=== PATIENT | female | born 1950 | race Caucasian/White ===

== ENCOUNTER → 2024-01-09 | Outpatient (CLI) | payer MEDICARE, BC ==
[2024-01-09 15:54] LABS: Calcium 10.2 mg/dL (8.7-10.3); Magnesium 1.6 mg/dL (1.5-2.4); Phosphorus 3.4 mg/dL (2.4-5.1)
[2024-01-09 15:58] LABS: T4, Free (Free Thyroxine) <0.11 ng/dL (0.80-1.80)
== END | disposition home or self-care (01) ==
LOC: LABWHC1 09:01
PROVIDERS: ATTEND Internal Medicine
DX: C73 Malignant neoplasm of thyroid gland (principal)
CPT/HCPCS: 36415; 82310; 82570; 83735; 84100; 84432; 84439; 84443; 86800

== ENCOUNTER → 2024-01-15 | Outpatient (CLI) | payer MEDICARE, BC ==
--- NOTE | 2024-01-15 16:50 | NM ---
EXAMINATION TYPE: NM Thyroid Iodine Therapy Oral DATE OF EXAM: 01/15/2024 COMPARISON: None HISTORY: 73-year-old female with total thyroidectomy in September. 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 Margin less than 1 mm. R eferred for remnant ablation. TECHNIQUE: The patient is on a low iodine diet. Thyroid hormone supplementation has not been started yet. Dose was prescribed (written directive) by an Authorized User in conjunction with treatment request a nd consultation with Dr. Abbott. Risks, benefits, and potential complications of radioactive I-131 therapy were discussed in detail wi th the patient by myself and the control room supervisor. Verbal and written informed consent wer e obtained. Written instructions were given for radiation safety precautions to be observed for 5 day s outpatient. The patient specific exposure calculations were done by RSO to ensure estimated max dose to any indiv idual exposed to the patient was less than 5 mSv. The patient was specifically advised to avoid close contact with children, women, and other members of public. Dose was verified in dose caliber and patient was given oral I-131 pill under the supervision of the control room supervisor. There were no immediate complications. IMPRESSION: Outpatient 97.0 mCi I-131 oral therapy capsule for thyroid remnant ablation. Patient will return for her posttreatment whole body scan on days 2 and 3.
== END | disposition home or self-care (01) ==
LOC: RADNMMAIN 12:42
PROVIDERS: ATTEND Internal Medicine
DX: C73 Malignant neoplasm of thyroid gland (principal); Q89.2 Congenital malformations of other endocrine glands
CPT/HCPCS: 79005; A9517

== ENCOUNTER → 2024-01-17 | Outpatient (CLI) | payer MEDICARE, BC ==
--- NOTE | 2024-01-26 10:50 | NM ---
EXAMINATION TYPE: NM I-131 Whole Body Imaging DATE OF EXAM: 01/18/2024 Comparison: None Clinical History: 73-year-old female with total thyroidectomy in September. Found to have multifocal rafia llary thyroid cancer, follicular variant involving both lobes measuring up to 1.3 cm. Margin less eric n 1 mm. Referred for remnant ablation. C73 MALIGNANT NEOPLASM OF THYROID GLAND TECHNIQUE: Following the oral administration of 97.0 mCi I-131 on 01/15/2024 whole body scan was perf ormed 2 and 3 days after radiotracer administration. Findings: There is physiologic uptake within the salivary glands, nasopharynx, stomach, colon, and bladder. Focal intense activity anterior midline neck compatible with remnant uptake and ablation. This activi ty is bilobed, the more superior located along the midline and the more inferior focus located left p arasagittal. Otherwise, no abnormal tracer activity is seen throughout the body. Impression: 1. Focal activity along the anterior midline neck corresponding to the remnant ablation. 2. This activity is bilobed with uptake also along the left parasagittal inferior margin of the remna nt site. Site of remnant ablation versus uptake within an adjacent left cervical lymph node. 3. Otherwise, no evidence for metastatic disease elsewhere in the body.
== END | disposition home or self-care (01) ==
LOC: RADNMMAIN 13:01
PROVIDERS: ATTEND Internal Medicine
DX: C73 Malignant neoplasm of thyroid gland (principal)
CPT/HCPCS: 78018